=== PATIENT | male | born 1955 | race Asian ===

== ENCOUNTER 2020-01-23 11:33 | Emergency (ER) | payer OTHER ==
[~2020-01-23] VITALS: Ht 160 cm; Wt 81.8 kg
[2020-01-23] MEDS ORDERED: BP PO (11:43)
[2020-01-23 13:48] LABS: HEMATOCRIT 22.9 % (41-53); HEMOGLOBIN 7.4 g/dL (13.5-17.5); MEAN CORPUSCULAR HEMOGLOBIN 29.7 pg (26.0-34.0); MEAN CORPUSCULAR HGB CONC 32.4 G/dL (31.0-37.0); MEAN CORPUSCULAR VOLUME 92 fL (80-100); PLATELET COUNT (AUTO) 212 K/uL (150-450); RED BLOOD CELL COUNT(AUTO) 2.49 MIL/uL (4.50-5.90); RED CELL DISTRIBUTION WIDTH 16.2 % (11.5-14.5)
[2020-01-23 14:05] LABS: ALBUMIN 3.1 g/dL (3.4-5.0); BILIRUBIN,TOTAL 0.4 mg/dL (0.1-1.0); CALCIUM, TOTAL 8.7 mg/dL (8.8-10.5); CREATININE 13.1 mg/dL (0.60-1.30); POTASSIUM 4.3 mmol/L (3.5-5.1); TOTAL PROTEIN, SERUM 7.4 g/dL (6.4-8.2)
[2020-01-23 14:29] LABS: BAND NEUTROPHILS % (MANUAL) 3 % (0-5); LYMPHOCYTES % (MANUAL) 8 % (22-44); MONOCYTES % (MANUAL) 2 % (2-9); SEGMENTED NEUTROPHILS % 87 % (40-70)
[2020-01-23 14:46] LABS: COVID AG,FIA SOURCE NASOPHARYNGEAL
[2020-01-23] MEDS ORDERED: SODIUM CHLORIDE 0.9% 1,000 ML IV ONE (15:15)
[2020-01-23 15:55] LABS: INFLUENZA TYPE A NEGATIVE FOR TYPE A (NEGATIVE); INFLUENZA TYPE B NEGATIVE FOR TYPE B (NEGATIVE)
[2020-01-23] MEDS ORDERED: VANCOMYCIN HCL 1 GM/D5% WATER 200 ML IV PRN (16:45)
[2020-01-23] MEDS ORDERED: PIPERACILLIN SODIUM/TAZOBACTAM 2.25 GM in DEXTROSE 5%-WATER 50 ML IV SCH (17:00)
[2020-01-23] MEDS ORDERED: VANCOMYCIN HCL 1 GM/D5% WATER 200 ML IV ONE (17:00)
[2020-01-23 21:43] VITALS: BP 174/88
== END 2020-01-23 23:08 | disposition short-term general hospital (02) ==
LOC: EMS 11:33
DX: J18.8 Other pneumonia, unspecified organism (principal); N17.9 Acute kidney failure, unspecified; K86.89 Other specified diseases of pancreas; I10 Essential (primary) hypertension; E78.00 Pure hypercholesterolemia, unspecified; F17.210 Nicotine dependence, cigarettes, uncomplicated; Z20.828 Contact with and (suspected) exposure to other viral communicable diseases
CPT/HCPCS: 36415; 71045; 71250; 80053; 82271; 83605; 84484; 85007; 85027; 87040; 87426; 87804; 93005; 96361; 96365; 96366; 96367; 99285; J2543; J3370; J7030; J7060; U0003